=== PATIENT | female | born 2000 ===

== ENCOUNTER 2021-06-09 19:15 | Emergency (ER) | payer OTHER ==
[~2021-06-09] VITALS: Ht 154.9 cm; Wt 81.6 kg
== END 2021-06-09 21:43 | disposition home or self-care (01) ==
LOC: ER 19:15 → EMR PED 19:32 → ER 19:32
DX: S90.121A Contusion of right lesser toe(s) without damage to nail, initial encounter (principal); X58.XXXA Exposure to other specified factors, initial encounter; Y93.9 Activity, unspecified; Y92.9 Unspecified place or not applicable; Y99.9 Unspecified external cause status